=== PATIENT | male | born 1955 | race American Indian/Alaskan Native ===

== ENCOUNTER 2017-05-04 10:14 | Emergency (ER) | payer MEDICAID ==
[2017-05-04] MEDS ORDERED: MOTRIN PO ONE (12:52)
[2017-05-04] MEDS ORDERED: BOOSTRIX IM ONE (12:53)
--- NOTE | 2017-05-04 13:30 | XRay Report ---
RIGHT ANKLE, 3 views: History: Right ankle pain after fall. Findings: Mild soft tissue swelling is identified. No acute osseous abnormality or joint pathology is identified. The fifth metatarsal base is intact. Impression: Soft tissue swelling. No acute osseous injury.
--- NOTE | 2017-05-04 13:30 | XRay Report ---
RIGHT HIP, 2 views: History: Right hip pain after fall. Moderate osteoarthritic changes are identified at the right hip. No evidence for fracture, dislocation or osteonecrosis. The visualized pelvis is intact. IMPRESSION: Osteoarthritis. No acute injury is appreciated.
--- NOTE | 2017-05-04 13:30 | XRay Report ---
RIGHT KNEE, 3 views: History: Right knee pain after fall. The bony architecture is intact without evidence of fracture or dislocation. No significant soft tissue abnormality is seen. IMPRESSION: Unremarkable right knee.
--- NOTE | 2017-05-04 13:31 | XRay Report ---
RIGHT FOOT, 3 views: History: Right foot pain after fall. The bony architecture is intact. Bony alignment is normal. No soft tissue abnormalities are seen. The joint spaces appear preserved. IMPRESSION: Unremarkable right foot.
[2017-05-04] MEDS ORDERED: TRIPLE ANTIBIOTIC TP ONE (13:48)
[2017-05-04 14:27] VITALS: BP 130/80
== END 2017-05-04 14:26 | disposition home or self-care (01) ==
LOC: ED 10:14
DX: S83.8X1A Sprain of other specified parts of right knee, initial encounter (principal); S93.431A Sprain of tibiofibular ligament of right ankle, initial encounter; S73.101A Unspecified sprain of right hip, initial encounter; I10 Essential (primary) hypertension; F17.200 Nicotine dependence, unspecified, uncomplicated; W10.8XXA Fall (on) (from) other stairs and steps, initial encounter; Y93.89 Activity, other specified; Y99.8 Other external cause status; Y92.89 Other specified places as the place of occurrence of the external cause
CPT/HCPCS: 90471; 90715; A6250

== ENCOUNTER 2019-01-01 07:13 | Outpatient (CLI) | payer MEDICAID ==
[2019-01-01 07:50] LABS: Blood Urea Nitrogen 10 mg/dL (9-20)
--- NOTE | 2019-01-01 09:08 | Cat Scan Report ---
CT LUMBAR SPINE WITHOUT CONTRAST HISTORY: Low back pain. TECHNIQUE: Helical CT without IV contrast. Sagittal and coronal reformatted images. FINDINGS a: There is normal height and alignment of the lumbar vertebral bodies. No compression deformity, subluxation or bone lesion. Disc space height appears preserved. There may be minimal disc space narrowing at L3-4. Mild degenerative endplate changes are noted at all levels. Mild to moderate facet arthropathy is identified throughout the lumbar region. The lowest 3 levels are most affected. Please note the pedicles in this patient appear congenitally short. L1-2: No significant abnormality with the disc. Mild facet arthropathy. L2-3: No significant abnormality with the disc. Mild facet arthropathy. L3-4: A mild posterior bulging disc is suspected. Moderate facet arthropathy and hypertrophy of ligamentum flavum. Bilateral neural foraminal narrowing is estimated at 25%. L4-5: A mild posterior bulging disc is suspected. Moderate facet arthropathy and hypertrophy of the ligamentum flavum. Moderate bilateral neural foraminal narrowing is estimated at 50-75%. Although intraspinal contents is poorly demonstrated on CT, mild central canal narrowing is suspected at this level. L5-S1: No significant abnormality with the disc. Moderate facet arthropathy and hypertrophy of the ligamentum flavum. Moderate bilateral neural foraminal narrowing is estimated at 50-75%. Impression: [id number] multilevel lumbar spondylosis as outlined above. L3-4 and L4-5 appear to be the most affected levels. No evidence for acute injury or bone lesion.
== END 2019-01-01 07:14 | disposition home or self-care (01) ==
LOC: CT 07:13
PROVIDERS: ATTEND Internal Medicine
DX: M47.816 Spondylosis without myelopathy or radiculopathy, lumbar region (principal); M48.061 Spinal stenosis, lumbar region without neurogenic claudication; I10 Essential (primary) hypertension; M19.90 Unspecified osteoarthritis, unspecified site; Z87.891 Personal history of nicotine dependence
CPT/HCPCS: 36415; 72131; 82565; 84520

== ENCOUNTER 2019-03-16 10:32 | Day surgery (SDC) | payer MEDICAID ==
[~2019-03-16 10:32] MED LIST: NACL 0.9% 1000 ML 1,000 ML IV SCH
[2019-03-16] MEDS ORDERED: COREG PO ONE ×2 (11:09→11:30)
--- NOTE | 2019-03-16 11:20 | Anesthesia Consultation ---
Anesthesia Consult and Med Hx Date of service: 03/16/19 - Airway Anesthetic Teeth Evaluation: Edentulous ROM Head & Neck: Adequate Mental/Hyoid Distance: Adequate Mallampati Class: Class III Intubation Access Assessment: Possibly Difficult - Pulmonary Exam CTA: Yes - Cardiac Exam Cardiac Exam: RRR - Pre-Operative Health Status ASA Pre-Surgery Classification: ASA3 Proposed Anesthetic Plan: MAC - Pulmonary Hx Smoking: Yes Hx Respiratory Symptoms: No COPD: No Hx Sleep Apnea: Yes - Cardiovascular System Hx Hypertension: Yes Hx Heart Attack/AMI: No Hx Percutaneous Transluminal Coronary Angioplasty (PTCA): No Hx Cardia Arrhythmia: No - Central Nervous System CVA: No Hx Psychiatric Problems: No - Gastrointestinal Hx Gastroesophageal Reflux Disease: No - Endocrine Hx Renal Disease: No Hx Liver Disease: No Hx Insulin Dependent Diabetes: No Hx Non-Insulin Dependent Diabetes: No Hx Thyroid Disease: No - Other Systems Hx Obesity: No - Additional Comments Anesthesia Medical History Comments: PMH HTN on 3 agents presenting for colonoscopy and found to have elevated BP in pre-procedure area. Patient reports that he did not take his usual antihypertensives today. He also reports that his BP is usually controlled when he visits his PCP (does not check pressures at home). Denies chest pain, dyspnea, headache. Confirmed home dose of antihypertensives with PCP office (Dr. Ericka Huggins) and will administer these and recheck BP afterward.
[2019-03-16] MEDS ORDERED: DIOVAN PO ONE (11:30)
[2019-03-16] MEDS ORDERED: NORVASC PO ONE (11:30)
[2019-03-16] MEDS ORDERED: DIPRIVAN 10 MG/ML IV ONE ×2 (12:27)
[2019-03-16] MEDS ORDERED: WATER FOR IRRIG STERILE ONE (12:28)
[2019-03-16] MEDS ORDERED: APRESOLINE ONE (12:42)
[2019-03-16] MEDS ORDERED: VERSED IV ONE (12:56)
--- NOTE | 2019-03-16 13:50 | Procedure Note ---
Date of procedure: 03/16/19 Pre-op diagnosis: Colon Polyp Screening Post-op diagnosis: other (Multiple Colon Polyps snare excised from the Ascending Colon and Transverse Colon/Minor,Left Colon Diverticuli) Procedure: Colonoscopy with Snare Excision and Cold Biopsy Anesthesia: MAC Surgeon: SVETA ORDAZ Estimated blood loss: minimal Pathology: none Specimen disposition: to lab Condition: stable Disposition: same day (Avoid aspirin and NSAID for 5 days. Encourage fiber intake and follow up in 1 to 2 weeks ([phone]).)
--- NOTE | 2019-03-16 13:54 | Operative Report ---
PROCEDURE: Colonoscopy with snare polypectomy. INDICATIONS: A 63-year-old -[place] gentleman with an underlying history of hypertension. Last colonoscopy was in 2007. He said to have had polyps at that time. Does not give any family history of any cancer or prior history of any cancer. He has an underlying history of diabetes, hypertension. His blood pressure is not well controlled and had to be given some medicine prior to the procedure. DESCRIPTION OF PROCEDURE: Initial rectal exam was unremarkable. Instrument was passed through the rectum onto the cecum, which was identified by the ileocecal valve and the appendiceal orifice. Visualization was fair to slightly poor. The mucosa was washed with copious amounts of water. The scope was retroflexed in the cecum. No additional pathology was noted in the cecum. In the ascending colon, there were three 10-11 mm polyps noted that were removed by snare excision with application of heat and retrieved. The remaining part of the ascending colon showed normal mucosa. In the transverse colon, there were 4 polyps, one was large about 2 cm in diameter that was removed by snare excision and retrieved. There were additional 2 polyps that were about 10 mm in diameter that were removed by snare excision and retrieved and the smaller one that was cold biopsied. In the remaining part, the transverse colon showed normal mucosa. There was 1-2 few small diverticula noted in the left colon and the rectum appeared normal on the retroverted view. There was minimal bleeding from the biopsy sites. No complications associated with the procedure. ASSESSMENT: Colon polyp screening, multiple colon polyps noted in the ascending as well as in the transverse colon, mild diverticular disease. There was minimal bleeding associated with the procedure. No complications associated with the procedure. PLAN: Plan is to have the patient to avoid aspirin and aspirin-related products for the next few days and follow up in the office in 1-2 weeks' time. RNDea was in the room throughout the entirety of the procedure. Thank you for the kind referral. JOB# [id number] SHAYY/MIN
[2019-03-16 13:59] VITALS: BP 130/67
== END 2019-03-16 10:33 | disposition home or self-care (01) ==
LOC: GIO 10:32
DX: Z12.11 Encounter for screening for malignant neoplasm of colon (principal); D12.3 Benign neoplasm of transverse colon; D12.2 Benign neoplasm of ascending colon; K57.30 Diverticulosis of large intestine without perforation or abscess without bleeding; I10 Essential (primary) hypertension; M19.90 Unspecified osteoarthritis, unspecified site; F17.210 Nicotine dependence, cigarettes, uncomplicated; H40.9 Unspecified glaucoma; G47.30 Sleep apnea, unspecified; Z79.899 Other long term (current) drug therapy; Z98.890 Other specified postprocedural states; Z86.010 Personal history of colon polyps; Z98.49 Cataract extraction status, unspecified eye
CPT/HCPCS: 45380; 45385; 88305; J0360; J2250; J2704; J7030

== ENCOUNTER 2019-04-25 08:22 | Outpatient (CLI) | payer MEDICAID ==
--- NOTE | 2019-04-25 09:25 | XRay Report ---
XR hip 2-3V RT INDICATION / CLINICAL INFORMATION: RIGHT HIP PAIN. COMPARISON: None available. FINDINGS: BONES/JOINT(S): No acute fracture or subluxation. Moderate bilateral hip DJD with joint space loss, s ubchondral sclerosis, and marginal osteophyte formation. No aggressive appearing bone lesions. SOFT TISSUES: No significant abnormality. ADDITIONAL FINDINGS: None. Signer Name: Pablo Oates MD Signed: 04/25/2019 9:21 AM Workstation Name: [email or web address]
--- NOTE | 2019-04-25 09:26 | XRay Report ---
XR spine cervical 4-5V INDICATION / CLINICAL INFORMATION: Neck pain. COMPARISON: None available. FINDINGS: BONES/JOINT(S): No vertebral fracture. No significant alignment abnormality. Moderate degenerative di sc disease from C2 through C6 with disc height loss, endplate sclerosis, and endplate osteophyte form ation. Bilateral neural foraminal narrowing at C3-4, C4-5, and C5-6 secondary to uncovertebral DJD. SOFT TISSUES: No significant abnormality. ADDITIONAL FINDINGS: None. Signer Name: Pablo Oates MD Signed: 04/25/2019 9:21 AM Workstation Name: [id number]
--- NOTE | 2019-04-25 09:26 | XRay Report ---
4 views of the lumbosacral spine. INDICATION / CLINICAL INFORMATION: LOWER BACK PAIN. COMPARISON: None available. FINDINGS: BONES/JOINT(S): No vertebral fracture. Overall normal alignment. Moderate diffuse spondylosis with sm all anterior and lateral osteophytes. No spondylolysis or spondylolisthesis. SOFT TISSUES: No significant abnormality. ADDITIONAL FINDINGS: None. Signer Name: Pablo Oates MD Signed: 04/25/2019 9:22 AM Workstation Name: [email or web address]
== END 2019-04-25 08:23 | disposition home or self-care (01) ==
LOC: XRAY 08:22
PROVIDERS: ATTEND Internal Medicine
DX: M47.817 Spondylosis without myelopathy or radiculopathy, lumbosacral region (principal); M25.78 Osteophyte, vertebrae; M50.322 Other cervical disc degeneration at C5-C6 level; M48.02 Spinal stenosis, cervical region; M16.0 Bilateral primary osteoarthritis of hip; I10 Essential (primary) hypertension
CPT/HCPCS: 72050; 72110

== ENCOUNTER 2019-11-14 09:34 | Emergency (ER) | payer MEDICAID ==
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
[2019-11-14 11:12] VITALS: BP 174/94
== END 2019-11-14 11:11 | disposition home or self-care (01) ==
LOC: ED 09:34
DX: S83.8X2A Sprain of other specified parts of left knee, initial encounter (principal); S83.8X1A Sprain of other specified parts of right knee, initial encounter; I10 Essential (primary) hypertension; M19.90 Unspecified osteoarthritis, unspecified site; F17.200 Nicotine dependence, unspecified, uncomplicated; Z98.890 Other specified postprocedural states; Z79.899 Other long term (current) drug therapy; V19.9XXA Pedal cyclist (driver) (passenger) injured in unspecified traffic accident, initial encounter; Y93.89 Activity, other specified; Y92.410 Unspecified street and highway as the place of occurrence of the external cause; Y99.8 Other external cause status
CPT/HCPCS: 99282